=== PATIENT | male | born 1995 | race Caucasian/White ===

== ENCOUNTER 2020-05-19 04:00 | Emergency (ER) | payer BC ==
[~2020-05-19] VITALS: Ht 175.3 cm; Wt 59.0 kg
--- NOTE | 2020-05-19 05:42 | EKG ---
[facility] [address] [facility] [place] [address] Signed Sinus bradycardia with short GA Rightward axis Incomplete right bundle branch block Borderline ECG No previous ECGs available Confirmed by JAYLA WHITMAN MD ([id number]) on 05/19/2020 5:42:01 AM Electronically Signed By: JAYLA WHITMAN MD 05/19/20 0542 PATIENT NAME: PEYTON SIDDIQUI Electrocardiogram DATE OF : [birth year] PHYSICIAN: JAYLA WHITMAN MD REPORT #: [id number] REPORT IS CONFIDENTIAL AND NOT TO BE RELEASED WITHOUT AUTHORIZATION
== END 2020-05-19 06:13 | disposition home or self-care (01) ==
LOC: ED 04:00
DX: R55 Syncope and collapse (principal); S00.03XA Contusion of scalp, initial encounter; W01.198A Fall on same level from slipping, tripping and stumbling with subsequent striking against other object, initial encounter
CPT/HCPCS: 70450; 72125; 80053; 83735; 84484; 85025; 93005; 93010; 99284-25